=== PATIENT | female | born 1985 | race African-American/Black ===

== ENCOUNTER → 2017-08-05 | Outpatient (CLI) | payer BC, MEDICAID ==
--- NOTE | 2017-08-05 13:18 | REP ---
Pelvic sonography: History: Pelvic cysts. No comparison study. Findings: Transabdominal and transvaginal scanning are performed. Uterus is somewhat enlarged measuring 8.7 x 5.0 x 7.8 cm. There are multiple fibroids seen. At mid uterine level there is a 3.6 x 3.4 x 4.0 cm fibroid. On the left side of the uterus there is a 4.0 x 3.1 x 3.0 cm fibroid. Also on the left is a 1.7 x 1.6 x 1.3 cm fibroid. There is a 0.8 cm fibroid at the fundal endometrium which appears to be submucosal. Normal ovaries are seen bilaterally. Right ovarian dimensions are 2.3 x 2.1 x 1.6 cm. Left ovary measures 1.8 x 2.8 x 2.3 cm. Impression: Enlarged fibroid uterus as above. Signed by Timi Soria MD 08/05/2017 04:08 P
== END ==
LOC: M RAD 11:19
PROVIDERS: ATTEND Obstetrics & Gynecology
DX: D25.9 Leiomyoma of uterus, unspecified (principal); N85.2 Hypertrophy of uterus

== ENCOUNTER → 2017-09-28 | Outpatient (CLI) | payer OTHER ==
[2017-09-29 12:01] LABS: HIV 1&2 SCREEN CENTAUR NEGATIVE (NEGATIVE)
[2017-09-29 12:02] LABS: HEPATITIS B SURFACE ANTIGEN NEGATIVE (NEGATIVE)
[2017-10-01 00:09] LABS: HSV IgM TYPES 1&2 <0.91 Ratio (0.00-0.90); HSV TYPE II IgG SPECIFIC <0.91 index (0.00-0.90)
== END ==
LOC: M WUC 15:52
DX: Z11.3 Encounter for screening for infections with a predominantly sexual mode of transmission (principal)
CPT/HCPCS: 87340

== ENCOUNTER → 2017-12-04 | Outpatient (CLI) | payer OTHER, MEDICAID | LOC: M LRY 14:01 | DX: M25.571 Pain in right ankle and joints of right foot (principal) | CPT/HCPCS: 73502 ==